=== PATIENT | female | born 1950 | race Caucasian/White ===

== ENCOUNTER 2017-01-26 05:03 | Emergency (ER) | payer MEDICARE, MEDICAID ==
[~2017-01-26] VITALS: Ht 162.6 cm; Wt 100.6 kg
[2017-01-26] MEDS ORDERED: SODIUM CHLORIDE 0.9% 1,000 ML IV ONE (05:34)
[2017-01-26] MEDS ORDERED: ASPIRIN 81 MG TABLET CHEW PO ONE (06:00)
[2017-01-26] MEDS ORDERED: ONDANSETRON 2MG/ML, 2ML IVPush ONE (06:00)
[2017-01-26] MEDS ORDERED: PLEASE ENTER ALLERGIES MC SCH ×2 (06:00)
[2017-01-26] MEDS ORDERED: SODIUM CHLORIDE FLUSH 10ML SYR IVF ONE (06:00)
[2017-01-26] MEDS ORDERED: ONDANSETRON 2MG/ML, 2ML ONE (06:17)
[2017-01-26] MEDS ORDERED: ASPIRIN 81 MG TABLET CHEW ONE (06:17)
[2017-01-26 06:25] LABS: ASPARTATE AMINO TRANSFERASE 26 U/L (15-37); BLOOD UREA NITROGEN 21 mg/dL (7-18)
[2017-01-26 06:31] LABS: IS PT STATUS REG ER OR PRE ER? YES
[2017-01-26] MEDS ORDERED: METF10002 PO (06:41)
[2017-01-26] MEDS ORDERED: CARV25TA12 PO (06:41)
[2017-01-26] MEDS ORDERED: OMEP-110 PO (06:41)
[2017-01-26] MEDS ORDERED: FURO40TA6 PO (06:41)
[2017-01-26] MEDS ORDERED: POTA20PA8 PO (06:41)
[2017-01-26 08:07] VITALS: BP 142/65
== END 2017-01-26 08:49 | disposition home or self-care (01) ==
LOC: ED 06:13
DX: M62.831 Muscle spasm of calf (principal); E11.9 Type 2 diabetes mellitus without complications
CPT/HCPCS: 36415; 71010; 80053; 83880; 84439; 84443; 84484; 85025; 85379; 93005; 93970; 96361; 96374; 99285; J2405; J7030

== ENCOUNTER 2018-01-13 05:18 | Emergency (ER) | payer MEDICARE, MEDICAID ==
[~2018-01-13] VITALS: Ht 162.6 cm; Wt 79.0 kg
[2018-01-13 05:18] VITALS: BP 171/92
[~2018-01-13 05:18] MED LIST: CARV25TA12 PO; FURO40TA6 PO; METF10002 PO; OMEP-110 PO; POTA20PA25 PO
== END 2018-01-13 06:56 | disposition home or self-care (01) ==
LOC: ED 06:54
DX: M76.9 Unspecified enthesopathy, lower limb, excluding foot (principal); X50.1XXA Overexertion from prolonged static or awkward postures, initial encounter; Y93.89 Activity, other specified; Y99.8 Other external cause status; Y92.009 Unspecified place in unspecified non-institutional (private) residence as the place of occurrence of the external cause
CPT/HCPCS: 29505; 99284